=== PATIENT | male | born 1985 | race Caucasian/White ===

== ENCOUNTER 2018-03-08 07:33 | Emergency (ER) | payer SELFPAY ==
[~2018-03-08] VITALS: Ht 175.3 cm; Wt 114.0 kg
[~2018-03-08 07:33] MED LIST: CARAFATE100 MG/ML PO; TRAMADOL HCL50 MG PO; ZOFRAN8 MG PO
[2018-03-08 08:26] LABS: HEMATOCRIT 48.3 % (38.0-50.0); HEMOGLOBIN 16.8 G/DL (12.5-16.6); MCH 29.5 PG (29.0-34.0); MCHC 34.8 G/DL (30.0-36.0); MCV 84.9 FL (86-99); PLATELET COUNT 410 K/uL (156-360); RBC DIS.WIDTH-CV 13.4 % (11.8-14.6); RBC DIS.WIDTH-SD 41.6 % (39-53); RED BLOOD COUNT 5.69 M/uL (4.00-5.50); WHITE BLOOD COUNT 12.2 K/uL (4.1-10.2)
[2018-03-08 08:55] LABS: ALBUMIN 4.7 G/DL (3.2-4.8); ALKALINE PHOSPHATASE 80 IU/L (3-129); ALT (GPT) 38 IU/L (3-49); AST (GOT) 34 IU/L (2-34); CHLORIDE 105 MEQ/L (99-109); DIRECT BILIRUBIN 0.1 mg/dL (0.0-0.3); GFR ESTIMATE (CALCULATED) > 59 mL/min/ (58.99-99999); GLUCOSE 119 mg/dL (70-99); LIPASE 9 U/L (1.0-51.0); SODIUM 140 MEQ/L (136-147); TOTAL BILIRUBIN 0.5 MG/DL (0.0-1.0); TOTAL PROTEIN 7.4 G/DL (6.4-8.3); UREA NITROGEN (BUN) 14 mg/dL (9-23)
[2018-03-08 08:56] LABS: TROP-I INTERPRETATION NEGATIVE; TROPONIN-I < 0.01 ng/mL (0.0-0.30)
[2018-03-08] MEDS ORDERED: ADDERALL10 MG PO (09:55)
[2018-03-08] MEDS ORDERED: ZENZEDI PO (09:57)
[2018-03-08] MEDS ORDERED: CRESTOR20 MG PO (09:57)
[2018-03-08 10:58] VITALS: BP 147/92
== END 2018-03-08 10:58 | disposition home or self-care (01) ==
LOC: EME 07:33
DX: K29.70 Gastritis, unspecified, without bleeding (principal); E78.5 Hyperlipidemia, unspecified; F98.8 Other specified behavioral and emotional disorders with onset usually occurring in childhood and adolescence; F17.200 Nicotine dependence, unspecified, uncomplicated; Z87.442 Personal history of urinary calculi; Z87.81 Personal history of (healed) traumatic fracture
CPT/HCPCS: 71046; 74177; 80048; 80076; 83690; 84484; 85027; 93005; 99281; 99284; J2270; S0028

== ENCOUNTER 2018-04-28 00:33 | Emergency (ER) | payer BC ==
[~2018-04-28] VITALS: Ht 177.8 cm; Wt 110.9 kg
[~2018-04-28 00:33] MED LIST changes: +ADDERALL10 MG PO; +CRESTOR20 MG PO; +ZENZEDI PO
[2018-04-28 00:52] LABS: HEMOGLOBIN 15.2 G/DL (12.5-16.6); MCH 29.6 PG (29.0-34.0); MCHC 33.8 G/DL (30.0-36.0); MCV 87.5 FL (86-99); PLATELET COUNT 387 K/uL (156-360); RBC DIS.WIDTH-CV 13.2 % (11.8-14.6); RBC DIS.WIDTH-SD 42.5 % (39-53); RED BLOOD COUNT 5.14 M/uL (4.00-5.50); WHITE BLOOD COUNT 12.7 K/uL (4.1-10.2)
[2018-04-28 01:05] LABS: ALBUMIN 4.3 g/dL (3.2-4.8); CHLORIDE 103 mEq/L (99-109); POTASSIUM 4.1 mEq/L (3.7-5.4); SODIUM 140 mEq/L (136-147)
[2018-04-28 01:07] LABS: GLUCOSE 108 mg/dL (70-99)
[2018-04-28 01:08] LABS: TOTAL PROTEIN 7.1 g/dL (6.4-8.3)
[2018-04-28 01:09] LABS: TOTAL BILIRUBIN 0.4 mg/dL (0.0-1.0)
[2018-04-28 01:11] LABS: ALKALINE PHOSPHATASE 85 IU/L (3-129); CREATININE 1.2 mg/dL (0.6-1.3); GFR ESTIMATE (CALCULATED) > 59 mL/min/ (58.99-99999)
[2018-04-28 01:12] LABS: UREA NITROGEN (BUN) 13 mg/dL (9-23)
[2018-04-28 01:13] LABS: AST (GOT) 20 IU/L (2-34)
[2018-04-28 01:14] LABS: ALT (GPT) 26 IU/L (3-49)
[2018-04-28 01:15] LABS: LIPASE 7 U/L (1.0-51.0)
[2018-04-28 01:17] LABS: TROP-I INTERPRETATION NEGATIVE; TROPONIN-I < 0.01 ng/mL (0.0-0.30)
[2018-04-28] MEDS ORDERED: OMEPRAZOLE20 MG PO (01:30)
[2018-04-28 03:06] LABS: TROP-I INTERPRETATION NEGATIVE; TROPONIN-I < 0.01 ng/mL (0.0-0.30)
[2018-04-28] MEDS ORDERED: NORCO 5/3251 TABLET PO (03:19)
[2018-04-28 03:32] VITALS: BP 122/86
== END 2018-04-28 03:46 | disposition home or self-care (01) ==
LOC: EME 00:33
PROVIDERS: Emergency Medicine
DX: R07.89 Other chest pain (principal); R94.31 Abnormal electrocardiogram [ECG] [EKG]; E78.5 Hyperlipidemia, unspecified; F98.8 Other specified behavioral and emotional disorders with onset usually occurring in childhood and adolescence; F17.200 Nicotine dependence, unspecified, uncomplicated; Z87.19 Personal history of other diseases of the digestive system; Z87.442 Personal history of urinary calculi; Z87.81 Personal history of (healed) traumatic fracture
CPT/HCPCS: 71046; 80053; 81003; 83690; 84484; 85027; 93005; 99281; 99284